=== PATIENT | female | born 1945 | race Caucasian/White ===

== ENCOUNTER 2025-03-04 17:26 | Outpatient (REF) | payer MEDICARE, MEDICAID, SELFPAY ==
--- OUTSIDE RECORDS SUMMARY | 2025-03-04 17:34 | XMS_ITS | Encounter Summary ---
Author Organization [employer] Sys tem Address [id number] [address] [place] [address] Care Team Providers Care Shovel Mechanic Name Role Phone Charlie Gomez DO Primary Care Provider [phone] Encounter Details Date Type Department Care Team (Late st Contact Info) Description 07/17/2024 Telephone [facility] Obstetrics/Gynecology [address] [place] [phone] Svetlana Madrid, DISTANCE LEARNING PROGRAM COORDINATOR-ATG JAVA DEVELOPER [address] [facility] [address] [place], [place] [id number] Social History Tobacco Use Types Packs/Day Years Used Date Smoking Tobacco: Former Cigarettes 0.5 10 Smokeless Tobacco: Never Alcohol Use Standard Drinks/Week Comments Not Currently 0 (1 standard drink = 0.6 oz pur e alcohol) Hunger Screening Answer Date Recorded Within the past 12 months we worried whether our food would run out before we got money to buy more. Never True 07/17/2024 Within the past 12 months th e food we bought just didn't last and we didn't have money to get more. Never True 07/17/2024 Comments Unknown Sex and Gender Information Value Date Recorded Sex Assigned at Not on file Legal Sex Female 3:37 PM EST Gender Identity Not on file Sexual Orientation Not on file documented as of this encounter Miscellaneous Notes * Telephone Encounter - Veronica Pruitt - 07/17/2024 2:56 PM EST Vonnie (Nurse) from [facility] Patient had UC without sensitivity done last week by . Vonnie is wondering if Patient still needs to have order done that was place. Vonnie states she can fax results from last week. Please advise. Thank you * Telephone Encounter - JEMIMA Bolton - 07/17/2024 2:56 PM EST Yes, can we please obtain a copy of UA and urine culture? We will not need to repeat them. Thanks, * Telephone Encounter - Veronica Pruitt - 07/17/2024 2:56 PM EST LVM asking Vonnie to fax UA to the Office. documented in this encounter Plan of Treatment Upcoming Encounters Date Type Department Care Team (Late st Contact Info) Description 04/07/2025 9:30 AM EDT Appointment [facility] - Mammography/DEXA Imaging [address] [place] [phone] Svetlana Madrid, DISTANCE LEARNING PROGRAM COORDINATOR-ATG JAVA DEVELOPER [address] [place], [place] [id number] 04/07/2025 10:00 AM EDT Appointment [facility] - Ultrasound [address] [place] [address] Svetlana Madrid, DISTANCE LEARNING PROGRAM COORDINATOR-ATG JAVA DEVELOPER [address] [place], [place] [id number] documented as of this encounter Visit Diagnoses Not on filedocumented in this encounter Care Teams Shovel Mechanic Relationship Specialty Start Date End Date Charlie Gomez DO [address] [facility], [place] [address] PCP - General Family Medicine 08/01/22 documented as of this encounter
--- OUTSIDE RECORDS SUMMARY | 2025-03-04 17:34 | XMS_ITS ---
Author Organization [facility] Care Team Providers Care Senior Oracle Adf Developer Name Role Phone Shea Apodaca Unavailable Unavailable Kurt Rosales Unavailable Unavailable Allison Graham Unavailable Unavailable HemAminta aguilera Unavailable Unavailable Rae Flores NP Unavailable Unavailable Bakies, Anamaria Unavailable Unavailable Mónica Anderson M Unavailable Unavailable Glen PERKINSCRegina Unavailable Unavailable Allergies and adverse reactions Code CodeSystem Substance Reaction Severity StartDate Concern Status [id number] SNOMED CT Sulfa Antibiotics Unknown 03/18/2022 active Care Team Name Role Address Phone Organization Dates Allison Graham [address], [facility], [place] (Office): : [facility] 03/22/2022 - 04/21/2022 Shea Apodaca [address] [place], [address], [place] (Office): [facility] 03/22/2022 - 04/21/2022 Kurt Rosales [address], [address], [place] (Office): : : [facility] 03/22/2022 - 04/21/2022 Aminta Moore [address] [place], [address], [facility] (Cell): : [facility] 03/22/2022 - 04/21/2022 Rae Flores HOUSING MANAGER [address] [place], [address], [facility] (Office): : : [facility] 03/22/2022 - 04/21/2022 Anamariaclarissa Cueva [facility] (Cell): [facility] 03/22/2022 - 04/21/2022 Mónica Anderson [address] [place], [address], [place] (Office): : [facility] 03/22/2022 - 04/21/2022 Regina Carroll HOUSING MANAGER-C [address], [address], [facility] (Cell): : : [facility] 03/22/2022 - 04/21/2022 Goals Section Goals Description Status Target Date [facility] GOAL: Patient will demonstrate ability to contribute to completion of ADLs consistently for a period of __3 days Active 04/29/2022 WELDER SHIELDED METAL ARC GOAL: Patient will have no episodes of confusion. Active 04/29/2022 [facility] GOAL: Patient will have no increase in endocrine disease/deficit before discharge. Active 04/29/2022 WELDER SHIELDED METAL ARC GOAL: Patient will have no increase in hearing deficit before discharge. Active 04/29/2022 WELDER SHIELDED METAL ARC GOAL: Patient will remain free from falls throughout hospitalization. Active 04/29/2022 WELDER SHIELDED METAL ARC GOAL: Patient will verbalize awareness/recognition between reality and hallucinations by discharge. Active 04/29/2022 [facility] GOAL: Patient will verbalize/demonstrate that hallucinations are not interfering with ADLs, social or leisure activities, by discharge. Active 04/24/2022 [facility] GOAL: Will have no changes in vision status through discharge. Active 04/29/2022 WELDER SHIELDED METAL ARC GOAL: Will improve or return to previous level of use of the device. Active 04/29/2022 [facility] GOAL: Will maintai n cardiovascular status through discharge. Active 04/29/2022 [facility] GOAL: Will return to previous level fo r ADL/IDL levels. Active 04/29/2022 [facility] GOAL: Will use pos itive methods of coping with frustration, anger or lack of impulse control by discharge. Active 04/29/2022 WELDER SHIELDED METAL ARC GOAL:Patient will cooperate with testing and intervention deemed necessary, throughout hospital stay. Active 04/29/2022 [facility] GOALS Patient will evidence blood glucose readings within the set normal range for patient, less than or greater than _400 , by discharge. Active 04/29/2022 [facility] GOALS: Patient beh avior will stabilize to baseline by discharge. Active 04/29/2022 Maintain Personal Hygiene Active 2021 Maintain Personal Safety Active 022 My affect will not alter my ability for care and treatment Active 04/29/2022 My disabilities/problems/wea knesses will be addressed with a plan for successful treatment. Active 04/29/2022 My disabilities/problems/wea knesses will be addressed with a plan for successful treatment. Active 04/29/2022 My intellectual functioning will not alter my ability for care and treatment Active 04/29/2022 My mood will not alter my ability for care and t reatment Active 04/29/2022 Patient Stated Goal: to go home Active 04/29/2022 Patient safety will be maintained Active 04/29/2022 Patients Stated Goals of Jesus atment will be used to meet goals of treatment with therapy and resolve Active 04/29/2022 SHORT TERM GOAL: Patient lenny l be able to follow 1-2 step commands as given by staff Active 04/29/2022 SHORT TERM GOAL: Patient lenny l be able to hear and communicate during stay at hospital. Active 04/29/2022 SHORT TERM GOAL: Patient will be alert and orien girma. Active 04/29/2022 SHORT TERM GOAL: Patient lenny nieto complete ADLs with only verbal cues with no interference of internal stimuli Active 04/29/2022 SHORT TERM GOAL: Patient lenny nieto have controlled endocrine status during stay at hospital. Active 04/29/2022 SHORT TERM GOAL: Patient lenny nieto have no falls through 1 Active 04/29/2022 SHORT TERM GOAL: Patient lenny nieto successfully complete group therapy for 3 consecutive days. Active 04/29/2022 SHORT TERM GOAL: Report bety gonzalez able to maintain self-control and not act aggressively for a period of 3 days. Active SHORT TERM GOAL: Will have n o adverse cardiac events while in hospital. Active 04/29/2022 SHORT TERM GOAL: Will have no decline in ADL/IDL levels. Active 04/29/2022 SHORT TERM GOAL: Will have n o decline or risks from use of the device. Active 04/29/2022 SHORT TERM GOAL:Patient will evidence compliance with medication and with ordered interventions. Active 04/29/2022 SHORT TERM GOALS Patient lenny nieto evidence compliance with medication and with blood glucose testing as ordered Active 04/29/2022 SHORT TERM GOALS: Patient be haviors will be manageable during stay at hospital. Active 04/29/2022 SHORT TERM GOALS: Will have no complications with vision during hospital stay. Active 04/29/2022 Successful discharge Active 04/29/2022 Will provide education and u nderstanding will be completed Active 04/29/2022 Will use strengths to help achieve successful tr eatment outcomes. Active 04/29/2022 Will use strengths to help achieve successful tr eatment outcomes. Active 04/29/2022 Immunizations Immunization Status Vaccine Details Vaccine Code CodeSystem Emil e Notes Influenza completed Influenza, high- dose, split virus, quadrivalent, injectable, preservative free lotNumber: [id number] expiry: 12/29/2022 Mfg: Seqirus Given 0.5 ml Left Deltoid intramuscularly 197 CVX created date: 04/21/2022 consent date: 04/21/2022 administered date: 04/21/2022 Problems Problem # Description Date of onset Resolved Date Code CodeSystem Concern Status 1 ATHEROSCLEROTIC HEART DISEASE OF [place] CORONARY ARTERY WITHOUT ANGINA PECTORIS 03/22/[address] active 2 ESSENTIAL (PRIMARY) HYPERTENSION 03/22/[address] active 3 HYPERLIPIDEMIA, UNSPECIFIED 03/22/[address] active 4 HYPOTHYROIDISM, UNSPECIFIED 03/22/[address] active 5 M[facility] (CURRENT) USE OF INSULIN 03/22/[address] active 6 MAJOR DEPRESSIVE DISORDER, RECURRENT, SEVERE WITH PSYCHOTIC SYMPTOMS 03/22/[address] active 7 MYASTHENIA GRAVIS WITHOUT (ACUTE) EXACERBATION 03/22/[address] active 8 TYPE 2 DIABETES MELLITUS WITHOUT COMPLICATIONS 03/22/[address] active 9 VITAMIN B12 DEFICIENCY ANEMIA, UNSPECIFIED 03/22/[address] active Reason for Referral No Reasons for Referral Entered Social History Social History Observation Description Start Date End Date Code Code System Current Smoking Status Tobacco smoking consumption unknown 891507955 SNOMED CT Sex Assigned At Female 1945 17356-8 [facility] Gender Identity Vital Signs Code Code System Vitals Name Values and Units Timing Information 2339-0 [facility] Blood Sugar Vrbkm=337.0 Units=mg/dL 04/21/2022 8462-4 [facility] Blood Pressure-Diastolic Value=77 Un its=mmHg 04/21/2022 8480-6 [facility] Blood Pressure-Systolic Sjjuy=898 Un its=mmHg 04/21/2022 66472-0 [facility] Pain Level Value=0.0 04/20/2022 9279-1 [facility] Respiratory Rate Value=18.0 Units=/m in 04/19/2022 8310-5 [facility] Body Temperature Value=97.6 Units= F 04/19/2022 8867-4 [facility] Heart rate Value=69.0 Units=/min 16097-8 [facility] O2 % BldC Oximetry Value=95.0 Units= % 04/19/2022 57017-2 [facility] Weight Trmcw=208.8 Units=Lbs 8302-2 [facility] Height Value=65.0 Units=Inches 03/22/2022
--- OUTSIDE RECORDS SUMMARY | 2025-03-04 17:34 | XMS_ITS | Encounter Summary ---
Author Organization [employer] [employer] [facility] s tem Address [id number] [address] [place] [address] Care Team Providers Care Electrician Radio Name Role Phone Charlie Gomez DO Primary Care Provider [phone] Encounter Details Date Type Department Care Team ([facility] Contact Info) Description 08/04/2024 [facility]ne[facility] [address] [place] [address] Holly Dueñas, SENIOR CLINICAL DATA MANAGER Hematuria, unspecified type Social History Tobacco Use Types Packs/Day Years [...] on file documented as of this encounter Plan of Treatment Upcoming Encounters Date Type Department Care Team (Late Contact Info) Description 04/07/2025 9:30 AM EDT Appointment [facility] - Mammography/DEXA Imaging [address] [place] [address] Svetlana Madrid, CODE ENFORCEMENT INSPECTOR-ACADEMIC ASSISTANT [address] [place] [address] 04/07/2025 10:00 AM EDT Appointment [facility] - Ultrasound [address] [place] [address] Svetlana Madrid, CODE ENFORCEMENT INSPECTOR-ACADEMIC ASSISTANT [address] [place] [address] documented as of this encounter Procedures Procedure Name Priority Date/Time Associated Diagnosis Comments URINE CULTURE Routine 07/11/2024 Hematuria, unspecified type documented in this encounter Results * Urine Culture (07/11/2024) Urine Urine specimen collection, clean catch / Unknown 07/11/2024 us Svetlana Madrid CODE ENFORCEMENT INSPECTOR-ACADEMIC ASSISTANT MICROBIOLOGY - GENE RAL ORDERABLES Final Result [facility] documented in this encounter Visit Diagnoses Diagnosis Hematuria, unspecified type documented in this encounter Care Teams Electrician Radio Relationship Specialty Start Date End Date Charlie Gomez DO [address] [facility], [place] [address] PCP - General Family Medicine 08/01/22 documented as of this encounter
--- OUTSIDE RECORDS SUMMARY | 2025-03-04 17:34 | XMS_ITS | Clinical Summary ---
Author Organization [employer] Address [id number] [address] [place] [address] Care Team Providers Care Director Of Hospitality Name Role Phone Charlie Gomez Primary Care Provider [phone] Allergies Active Allergy Reactions Criticality Noted Date Comments Sulfa (Sulfonamide Antibiotics) 07/2022 Medications aspirin 81 mgIndications:At herosclerosis of nenana coronary artery of nenana heart, unspecified whether angina present Take 1 tablet (81 mg total) by mouth in the morning. 11/09/2023 Active TRESIBA U-100 INSULIN 100 unit/mL solution Inject 20 Units under the skin in the morning. 08/15/2023 Active levothyroxine (SYNTHROID, LEVOTHROID) 100 MCG tablet Take 1 tablet (100 mcg total) by mouth in the morning. 10/18/2023 Active losartan-hydroCH LOROthiazide (HYZAAR) 100-12.5 mg per tablet Take 1 tablet by mouth in the morning. 08/30/2023 Active metFORMIN (GLUCOPHAGE) 1000 mg tablet Take 1 tablet (1,000 mg total) by mouth in the morning and 1 tablet (1,000 mg total) in the evening. Take with meals. 10/28/2023 Active pioglitazone (ACTOS) 15 mg tablet Take 1 tablet (15 mg total) by mouth in the morning. 10/28/2023 Active pantoprazole (PROTONIX) 40 mg EC tablet Take 1 tablet (40 mg total) by mouth every morning before breakfast. 10/28/2023 Active venlafaxine XR (EFFEXOR-XR) 150 mg 24 hr capsule Take 1 capsule (150 mg total) by mouth in the morning. 10/28/2023 Active gabapentin (NEURONTIN) 100 mg capsule Take 1 capsule (100 mg total) by mouth nightly. 10/28/2023 Active amLODIPine (NORVASC) 2.5 mg tablet Take 1 tablet (2.5 mg total) by mouth in the morning. 10/21/2023 Active albuterol (PROVENTIL HFA;VENTOLIN HFA) 90 mcg/actuation inhaler Inhale 2 puffs every 6 (six) hours as needed for wheezing. Active atorvastatin (LIPITOR) 40 mg tablet Take 1 tablet (40 mg total) by mouth in the morning. 06/10/2024 Active FARXIGA 10 mg tablet Take 1 tablet (10 mg total) by mouth in the morning. 07/14/2024 Active ferrous sulfate 325 (65 FE) mg tablet Take 1 tablet (325 mg total) by mouth daily with breakfast. Active thiamine HCl (VITAMIN B-1) 100 mg tablet Take 1 tablet (100 mg total) by mouth in the morning. Active risperiDONE (RisperDAL) 0.25 mg tablet Take 1 tablet (0.25 mg total) by mouth in the morning and 1 tablet (0.25 mg total) before bedtime. Active magnesium hydroxide 400 mg/5 mL suspension Take 30 mL by mouth nightly as needed. Active hypromellose (NATURES TEARS) drops 1 drop as needed for dry eyes. Active insulin lispro (HumaLOG) 100 unit/mL injection Inject under the skin 3 (three) times a day before meals. PER SLIDING SCALE Active Active Problems Problem Noted Date Diagnosed Date Sensorineural hearing loss (SNHL) 02/13/2025 Fat necrosis of left breast 10/06/2024 Overview (10/06/2024): Left breast biopsy (1 o'clock position) 09/29/24: pathology shows benign breast tissue with fat necrosis, sclerosis, and hyalinized foci. 6 month left breast mamm and US recommended. Order placed. Due 04/2025. Arthralgia 05/13/2024 Other abnormalities of gait and mobility 023 Lumbar degenerative disc disease 06/22/2023 Lumbar spondylosis 06/22/2023 Hyponatremia 05/23/2023 Neuropathy 12/29/2022 Type 2 diabetes mellitus wit h diabetic peripheral angiopathy without gangrene, with long-term current use of insulin 11/24/2022 Left hip pain 09/01/2022 Severe recurrent major depression with psychotic features 08/02/2022 Atherosclerosis of nenana coronary artery of vilma staci heart 08/02/2022 Myasthenia gravis without exacerbation Acquired hypothyroidism 08/02/2022 Primary hypertension 08/02/2022 Hyperlipidemia 08/02/2022 Post-COVID syndrome resolved 08/02/2022 Personal history of transient cerebral ischemia 08/02/2022 Anemia due to vitamin B12 deficiency 08/02/2022 Hypoproteinemia 08/02/2022 Resolved Problems Problem Noted Date Diagnosed Date Resolved Date Mass of left breast 09/29/2024 10/07/19 Abnormal mammogram of left breast 09/09/2024 10/06/2024 Overview (09/19/2024): Breast biopsy is scheduled for 09/29/24 Morbid obesity 11/09/2023 01/18/2024 Encounters Date Type Department Care Team Description 02/13/2025 Continuing Care [facility] Internal Medicine - Family Medicine [address] [place] [address] Charlie Gomez, Type 2 diabetes mellitus with diabetic peripheral angiopathy without gangrene, with long-term current use of insulin ([facility]) (Primary Dx); Hyponatremia; Severe recurrent major depression with psychotic features ([facility]); Sensorineural hearing loss (SNHL), unspecified laterality; Acquired hypothyroidism; Primary hypertension 01/16/2025 Continuing Care [facility] Internal Medicine - Family Medicine [address] [place] [address] Charlie Gomez, Severe recurrent major depression with psychotic features ([facility]) (Primary Dx); Myasthenia gravis without exacerbation ([facility]); Primary hypertension 12/17/2024 Continuing Care [facility] Internal Medicine - Family [facility] [place] [facility] [address] [place] [address] Charlie Gomez, Type 2 diabetes mellitus with diabetic peripheral angiopathy without gangrene, with long-term current use of insulin ([facility]) (Primary Dx); Severe recurrent major depression with psychotic features ([facility]); Primary hypertension from Last 3 Months Immunizations Immunization Administration Dates Next Due Pneumococcal Polysaccharide 03/23/2023 Family History Medical History Relation Name Comments No Known Problems Brother was in his 80's-not sure what he had Hypertension Father he had a sudden Diabetes type II Mother Heart failure Mother Breast cancer Neg Hx Relation Name Status Comments Brother Father Mother Social History Tobacco Use Types Packs/Day Years Used Date Smoking Tobacco: Former Cigarettes 0.5 10 Smokeless Tobacco: Never Tobacco Cessation:Counseling Given: Not Answered Alcohol Use Standard Drinks/Week Comments Not Currently [...] on file Sexual Orientation Not on file Last Filed Vital Signs Vital Sign Reading Time Taken Comments Blood Pressure 118/68 02/13/2025 4:15 PM EDT Pulse 64 02/13/2025 4:15 PM EDT Temperature 36.6 C (97.9 F) 02/13/2025 4:15 PM EDT Respiratory Rate 18 02/13/2025 4:15 PM EDT Oxygen Saturation 98% 02/13/2025 4:15 PM EDT Inhaled Oxygen Concentration - - Weight 90.9 kg (200 lb 6.4 oz) 02/13/2025 4:15 P M EDT Height 165.1 cm (5' 5 ) 07/17/2024 1:09 PM EST Body Mass Index 33.35 07/17/2024 1:09 PM EST Plan of Treatment Upcoming Encounters Date Type Department Care Team (Late st Contact Info) Description 04/07/2025 9:30 AM EDT Appointment [facility] [place] [facility] - Mammography/DEXA Imaging [address] [place] [address] Svetlana Madrid, STAFF NURSE ANESTHETIST-PRESCHOOL LEAD TEACHER [address] [place] [address] 04/07/2025 10:00 AM EDT Appointment [facility] [place] [facility] - Ultrasound [address] [place] [id number] Svetlana Madrid, STAFF NURSE ANESTHETIST-PRESCHOOL LEAD TEACHER [address] [place], [place] [id number] Health Maintenance Due Date Last Done Comments Depression Screening 1957 Fall Risk Screening 11/26/2008 COVID-19 Vaccine (2023-2 5 season) 2024 04/30/2024, 06/01/2021, 09/09/2020, Additional history exists Influenza Vaccine 03/02/2025 04/21/2024, , 04/14/2021, Additional history exists Tobacco Screening 07/17/2025 07/17/2024 DTaP,Tdap and Td Vaccines (2 - Td or Tdap) 04/20/2028 04/20/2018 Zoster (Shingles) Vaccine Completed 2021, 11/13/2021, 08/10/2009 Medical Devices Not on file Insurance [employer] MEDICARE MEDICAID [place] Care Teams Director Of Hospitality Relationship Specialty Start Date End Date Charlie Gomez DO [address] [place] [facility] [place] [address] PCP - General Family Medicine 08/01/22
[2025-03-04 18:12] LABS: Glucose Urine UA >=1000 mg/dL (NEGATIVE)
== END 2025-03-04 17:27 | disposition home or self-care (01) ==
LOC: LAB 17:26
PROVIDERS: PCP Family Medicine; Visit Provider Family Medicine
DX: N39.0 Urinary tract infection, site not specified (principal); R41.82 Altered mental status, unspecified
CPT/HCPCS: 81003